=== PATIENT | male | born 1945 | race Caucasian/White ===

== ENCOUNTER 2021-12-28 16:16 | Emergency (ER) | payer OTHER ==
[~2021-12-28] VITALS: Ht 170.2 cm; Wt 83.9 kg
[2021-12-28] MEDS ORDERED: HYDROcodone-ACET 5/325MG TAB PO ONE (19:00)
[2021-12-28 20:00] VITALS: BP 137/81
== END 2021-12-28 20:47 | disposition home or self-care (01) ==
LOC: ER 16:16
DX: M25.511 Pain in right shoulder (principal); Z48.817 Encounter for surgical aftercare following surgery on the skin and subcutaneous tissue
CPT/HCPCS: 93971

== ENCOUNTER 2023-06-14 07:09 | Inpatient (IN) | payer OTHER ==
[~2023-06-14] VITALS: Ht 172.7 cm; Wt 92.8 kg
[2023-06-14 07:33] LABS: Basophils # (auto) 0 10 ^3/uL (0-0.2); Eosinophils # (auto) 0 10 ^3/uL (0-0.8); Eosinophils % (auto) 0.4 % (0.0-7.0); Monocytes # (auto) 0.8 10 ^3/uL (0-1.3); Neutrophils # (auto) 4.6 10 ^3/uL (1.6-8.6); Nucleated Red Blood Cells % 0.1 %; White Blood Cell 7.7 10^3/uL (4.4-10.8)
[2023-06-14 07:34] LABS: Basophils % (auto) 0.4 % (0.0-2.0); Hematocrit 42.7 % (41.0-53.0); Hemoglobin 14.9 g/dL (13.5-17.5); Lymphocytes # (auto) 2.3 10 ^3/uL (0.4-5.4); Lymphocytes % (auto) 29.4 % (10.0-50.0); Mean Corpuscular Hemoglobin 34.7 pg (28.0-32.0); Mean Corpuscular Volume 99.2 fL (80.0-100.0); Monocytes % (auto) 10.4 % (0.0-12.0); Neutrophils % (auto) 59.4 % (37.0-80.0); Red Blood Cells 4.31 10^6/uL (4.5-5.90); Red Cell Distribution Width 13.2 % (11.8-14.3)
[2023-06-14 08:00] LABS: Alanine Aminotransferase 30 U/L (7-40); Albumin 3.9 g/dL (3.2-4.8); Alkaline Phosphatase 77 U/L (46-116); Anion Gap 4.1 (5-15); Aspartate Aminotransferase 20 U/L (13-40); BUN/Creatinine Ratio 18.8 (10.0-20.0); Blood Urea Nitrogen 18 mg/dL (9-23); Calcium 9.5 mg/dL (8.5-10.1); Carbon Dioxide 29.9 mmol/L (20-30); Chloride 105 mmol/L (98-107); Glucose 99 mg/dL (74-106); Potassium 4.4 mmol/L (3.5-5.1); Sodium 139 mmol/L (136-145); Total Protein 6.4 g/dL (5.7-8.2)
[2023-06-14] MEDS ORDERED: HYDROcodone-ACET 5/325MG TAB PO ONE (09:00)
[2023-06-14 09:53] LABS: Urine Bacteria NONE SEEN /hpf (None Seen); Urine Blood Negative /uL (Negative); Urine Clarity Clear (Clear); Urine Color Yellow (Yellow); Urine Mucus FEW (None Seen); Urine Protein, UAD Negative (Negative); Urine Specific Gravity 1.019 (1.001-1.035); Urine Urobilinogen Normal (Negative); Urine WBC 1 /hpf (0 - 3)
[2023-06-14] MEDS ORDERED: SODIUM CHLORIDE 0.9% 1,000 ML IV ONE (10:00)
[2023-06-14] MEDS ORDERED: metroNIDAZOLE 500MG/100ML 100 ML IV ONE (10:00)
[2023-06-14] MEDS ORDERED: MORPHINE SULFATE INJ 2 MG/ml SYRG IV ONE ×2 (10:00→10:15)
[2023-06-14] MEDS ORDERED: levoFLOXacin 500MG 100 ML IV ONE (10:00)
[2023-06-14] MEDS ORDERED: ONDANSETRON HCL 4 MG/2 ML VIAL IV ONE ×3 (10:00→12:15)
[2023-06-14] MEDS ORDERED: MORPHINE SULFATE 4 MG/ML SYR/VIAL IV ONE (10:45)
[2023-06-14] MEDS ORDERED: HYDROmorphone HCL 2 MG/ML VL/or syr IV ONE (12:15)
[2023-06-14] MEDS ORDERED: ACETAMINOPHEN 325 MG TAB PO PRN (13:00)
[2023-06-14] MEDS ORDERED: HYDROcodone-ACET 5/325MG TAB PO PRN (13:00)
[2023-06-14] MEDS ORDERED: HYDR-4072 PO (13:10)
[2023-06-14] MEDS ORDERED: DORZ2SOL17 (13:10)
[2023-06-14] MEDS ORDERED: [UNRECOGNIZED DRUG - CODE] EACHEYE (13:10)
[2023-06-14] MEDS ORDERED: GAB100C PO (13:10)
[2023-06-14] MEDS ORDERED: TIMO0.5S32 (13:10)
[2023-06-14] MEDS ORDERED: ROPI5TAB17 PO (13:10)
[2023-06-14] MEDS ORDERED: ROPI0.5T4 PO (13:10)
[2023-06-14] MEDS ORDERED: DOXY-111 PO (13:10)
[2023-06-14] MEDS ORDERED: TRAZ-227 PO (13:10)
[2023-06-14] MEDS ORDERED: KETOROLAC TROMETH 30 MG/ML 1ML VIAL IV ONE (13:15)
[2023-06-14] MEDS ORDERED: DICYCLOMINE HCL 10 MG CAP PO SCH (13:45)
[2023-06-14] MEDS ORDERED: DICYCLOMINE HCL 10 MG CAP PO ONE (13:45)
[2023-06-14] MEDS: SODIUM CHLORIDE 0.9% 1,000 ML IV SCH (14:21)
[2023-06-14] MEDS: metroNIDAZOLE 500MG/100ML 100 ML IV SCH ×2 (14:22→22:38)
[2023-06-14] MEDS ORDERED: TEMAZEPAM 15 MG CAP PO ONE (21:30)
[2023-06-14 23:00] VITALS: PULSE 88; RESP 14; O2SAT 97
[2023-06-14] MEDS ORDERED: ALPRAZolam 0.5 MG TAB PO ONE (23:15)
[2023-06-15 05:16] LABS: Basophils # (auto) 0 10 ^3/uL (0-0.2); Eosinophils # (auto) 0 10 ^3/uL (0-0.8); Eosinophils % (auto) 0.5 % (0.0-7.0); Monocytes # (auto) 0.6 10 ^3/uL (0-1.3); Monocytes % (auto) 8.6 % (0.0-12.0); Nucleated Red Blood Cells % 0.1 %
[2023-06-15 05:18] LABS: Basophils % (auto) 0.3 % (0.0-2.0); Hematocrit 39.5 % (41.0-53.0); Hemoglobin 13.9 g/dL (13.5-17.5); Lymphocytes # (auto) 1.5 10 ^3/uL (0.4-5.4); Lymphocytes % (auto) 20.9 % (10.0-50.0); Mean Corpuscular Hemoglobin 36.4 pg (28.0-32.0); Mean Corpuscular Hgb Conc. 35.2 g/dL (32.0-36.0); Mean Corpuscular Volume 103.5 fL (80.0-100.0); Neutrophils % (auto) 69.7 % (37.0-80.0); Red Blood Cells 3.82 10^6/uL (4.5-5.90); Red Cell Distribution Width 13.4 % (11.8-14.3); White Blood Cell 7.1 10^3/uL (4.4-10.8)
[2023-06-15 05:28] LABS: Alanine Aminotransferase 22 U/L (7-40); Albumin 3.4 g/dL (3.2-4.8); Alkaline Phosphatase 63 U/L (46-116); Anion Gap 4.1 (5-15); Aspartate Aminotransferase 17 U/L (13-40); BUN/Creatinine Ratio 16.5 (10.0-20.0); Bilirubin, Total 1.4 mg/dL (0.2-1.0); Blood Urea Nitrogen 16 mg/dL (9-23); Calcium 8.7 mg/dL (8.7-10.4); Carbon Dioxide 25.9 mmol/L (20-30); Chloride 105 mmol/L (98-107); Glucose 126 mg/dL (74-106); Potassium 4.3 mmol/L (3.5-5.1); Sodium 135 mmol/L (136-145); Total Protein 5.8 g/dL (5.7-8.2)
[2023-06-15] MEDS: SODIUM CHLORIDE 0.9% 1,000 ML IV SCH (06:00)
[2023-06-15] MEDS ORDERED: CYCLOBENZAPRINE HCL 10 MG TAB PO PRN (06:15)
[2023-06-15 09:00] VITALS: PULSE 61; RESP 16; O2SAT 98
[2023-06-15] MEDS ORDERED: levoFLOXacin 500MG 100 ML IV SCH (10:00)
[2023-06-15] MEDS ORDERED: ENOXAPARIN SOD 40 MG/0.4 ML SYRINGE SC SCH (10:00)
[2023-06-15 11:32] VITALS: BP 147/71; PULSE 64; RESP 19; TEMP 97.9; O2SAT 98
[2023-06-15 13:18] VITALS: RESP 18
[2023-06-15 13:38] VITALS: BP 147/71; PULSE 64; RESP 19; TEMP 97.9; O2SAT 98
== END 2023-06-15 14:38 | disposition home or self-care (01) | DRG 392 ==
LOC: ER 07:09 → OVERFLOW 13:04 → WEST WING 06-15 12:01
PROVIDERS: ADMIT Nurse Practitioner Family; ATTEND Internal Medicine Geriatric Medicine
DX: R10.9 Unspecified abdominal pain (principal); G20 Parkinson's disease; I10 Essential (primary) hypertension; K52.9 Noninfective gastroenteritis and colitis, unspecified; G89.29 Other chronic pain; M54.9 Dorsalgia, unspecified; K59.00 Constipation, unspecified; Z88.0 Allergy status to penicillin
CPT/HCPCS: 36415; 72040; 72070; 72100; 74176; 80053; 81001; 83690; 84484; 85025; 93005; 96365; 96375; 96376; G0378; J1885; J1956; J2405; J3490

== ENCOUNTER 2023-06-17 04:28 | Inpatient (IN) | payer OTHER ==
[~2023-06-17] VITALS: Ht 170.2 cm; Wt 82.5 kg
[~2023-06-17 04:28] MED LIST: DORZ2SOL17; DOXY-111 PO; GAB100C PO; HYDR-4072 PO; ROPI0.5T4 PO; ROPI5TAB17 PO; TIMO0.5S32; TRAZ-227 PO; [UNRECOGNIZED DRUG - CODE] EACHEYE
[2023-06-17 05:07] LABS: Urine WBC None Seen /hpf (0 - 3)
[2023-06-17 05:23] LABS: Urine Bacteria NONE SEEN /hpf (None Seen); Urine Blood Negative /uL (Negative); Urine Clarity Clear (Clear); Urine Protein, UAD Negative (Negative); Urine Specific Gravity 1.006 (1.001-1.035); Urine Urobilinogen Normal (Negative); Urine pH 7.5 (5.0-8.0)
[2023-06-17 05:31] LABS: Urine Color Straw (Yellow)
[2023-06-17] MEDS ORDERED: HYDROmorphone HCL 2 MG/ML VL/or syr IV ONE (07:00)
[2023-06-17] MEDS ORDERED: IOHEXOL 300 MG/ML 100ML BOTTLE IJ ONE (07:03)
[2023-06-17 07:54] LABS: Basophils # (auto) 0 10 ^3/uL (0-0.2); Eosinophils # (auto) 0.1 10 ^3/uL (0-0.8); Eosinophils % (auto) 0.7 % (0.0-7.0); Monocytes # (auto) 0.8 10 ^3/uL (0-1.3)
[2023-06-17 07:56] LABS: Basophils % (auto) 0.4 % (0.0-2.0); Hematocrit 44.4 % (41.0-53.0); Hemoglobin 15.5 g/dL (13.5-17.5); Lymphocytes # (auto) 2.6 10 ^3/uL (0.4-5.4); Lymphocytes % (auto) 31.3 % (10.0-50.0); Mean Corpuscular Hemoglobin 35.6 pg (28.0-32.0); Mean Corpuscular Hgb Conc. 34.9 g/dL (32.0-36.0); Monocytes % (auto) 9.7 % (0.0-12.0); Neutrophils # (auto) 4.8 10 ^3/uL (1.6-8.6); Neutrophils % (auto) 57.9 % (37.0-80.0); Nucleated Red Blood Cells % 0.1 %; Red Blood Cells 4.35 10^6/uL (4.5-5.90); Red Cell Distribution Width 13.4 % (11.8-14.3); White Blood Cell 8.3 10^3/uL (4.4-10.8)
[2023-06-17 08:09] VITALS: PULSE 87; RESP 18; O2SAT 99
[2023-06-17 08:12] LABS: Alanine Aminotransferase 31 U/L (7-40); Albumin 4.3 g/dL (3.2-4.8); Alkaline Phosphatase 70 U/L (46-116); Anion Gap 6.4 (5-15); Aspartate Aminotransferase 32 U/L (13-40); BUN/Creatinine Ratio 15.2 (10.0-20.0); Blood Urea Nitrogen 16 mg/dL (9-23); Calcium 9.6 mg/dL (8.5-10.1); Carbon Dioxide 26.6 mmol/L (20-30); Chloride 106 mmol/L (98-107); Glucose 102 mg/dL (74-106); Lipase 43 U/L (12-53); Potassium 4.3 mmol/L (3.5-5.1); Sodium 139 mmol/L (136-145)
[2023-06-17 08:13] LABS: Bilirubin, Total 1.3 mg/dL (0.2-1.0); Total Protein 7.3 g/dL (5.7-8.2)
[2023-06-17] MEDS ORDERED: LORazepam 2MG/ML-1ML VIAL IV ONE ×2 (09:00→17:30)
[2023-06-17] MEDS ORDERED: ONDANSETRON HCL 4 MG/2 ML VIAL IV PRN (13:00)
[2023-06-17] MEDS ORDERED: MORPHINE SULFATE INJ 2 MG/ml SYRG IV PRN (13:00)
[2023-06-17] MEDS ORDERED: NITROGLYCERIN 0.4 MG SL TAB SL PRN (13:00)
[2023-06-17] MEDS: ALPRAZolam 0.25 MG TAB PO PRN (16:14)
[2023-06-17 19:40] VITALS: PULSE 80; RESP 22; O2SAT 93
[2023-06-17] MEDS ORDERED: BACLOFEN 10 MG TAB PO ONE (20:45)
[2023-06-18] VITALS (10 sets, daily range): BP systolic 108–144; BP diastolic 60–90; PULSE 60–93; RESP 16–22; TEMP 97.2–98.3; O2SAT 96–100
[2023-06-18] MEDS: ALPRAZolam 0.25 MG TAB PO PRN ×2 (00:25→09:08)
[2023-06-18] MEDS ORDERED: BACLOFEN 10 MG TAB PO ONE (00:45)
[2023-06-18] MEDS ORDERED: LORazepam 2MG/ML-1ML VIAL IV ONE (14:30)
[2023-06-18] MEDS: ACETAMINOPHEN 325 MG TAB PO PRN ×2 (14:48→22:32)
[2023-06-18] MEDS: LORazepam 2MG/ML-1ML VIAL IV PRN ×2 (15:53→19:56)
[2023-06-18] MEDS: BACLOFEN 10 MG TAB PO PRN (15:58)
[2023-06-18] MEDS ORDERED: ROPINIROLE HYDROCHLORIDE PO SCH (22:00)
[2023-06-18] MEDS ORDERED: PATIENTS OWN MEDICATION PO SCH (22:00)
[2023-06-18] MEDS: ROPINIROLE HYDROCHLORIDE PO SCH (22:32)
[2023-06-19] VITALS (9 sets, daily range): BP systolic 119–162; BP diastolic 69–100; PULSE 70–97; RESP 16–22; TEMP 97.4–98.1; O2SAT 94–98
[2023-06-19] MEDS: LORazepam 2MG/ML-1ML VIAL IV PRN ×3 (00:11→12:29)
[2023-06-19] MEDS: BACLOFEN 10 MG TAB PO PRN ×3 (00:20→23:43)
[2023-06-19] MEDS: ROPINIROLE HYDROCHLORIDE PO SCH ×2 (06:20→22:08)
[2023-06-19] MEDS ORDERED: hydrALAZINE HCL 20 MG/ML VL IV PRN (10:15)
[2023-06-19] MEDS ORDERED: TIMO0.5S28 OP (10:58)
[2023-06-19 13:57] LABS: INR 1.14 (0.9-1.15); Prothrombin Time 11.9 sec (9.3-11.8)
[2023-06-19] MEDS ORDERED: ONDANSETRON HCL 4 MG/2 ML VIAL ONE (16:50)
[2023-06-19] MEDS ORDERED: DexAMETHasone SOD PHOS 10MG/1ML VIAL INJ ONE (16:50)
[2023-06-19] MEDS ORDERED: GLYCOPYRROLATE 0.2 MG/ML 1ML VIAL ONE (16:50)
[2023-06-19] MEDS ORDERED: KETOROLAC TROMETH 30 MG/ML 1ML VIAL ONE (16:50)
[2023-06-19] MEDS ORDERED: LIDOCAINE 2% (LOCAL ANESTH.) PF 5ml SDV ONE (16:50)
[2023-06-19] MEDS ORDERED: PROPOFOL 10 MG/ML 20 ML IV ONE ×2 (16:50→19:10)
[2023-06-19] MEDS ORDERED: LIDOCAINE 1%-Mpf/Epinephrine 1:200,000 30ml VIAL ONE (17:44)
[2023-06-19] MEDS ORDERED: SODIUM CHLORIDE LOCK 10 ML ONE (18:10)
[2023-06-19] MEDS ORDERED: ceFAZolin 1GM VL ONE (18:10)
[2023-06-19] MEDS ORDERED: VANCOMYCIN HCL 1000 MG VL ONE (19:22)
[2023-06-19] MEDS: CLINDAMYCIN HCL 150 MG CAP PO SCH (22:08)
[2023-06-19] MEDS ORDERED: [UNRECOGNIZED DRUG - OTHER] PO PRN (22:45)
[2023-06-20 05:00] VITALS: BP 131/67; PULSE 79; RESP 20; TEMP 97.7; O2SAT 97
[2023-06-20 05:53] LABS: Basophils # (auto) 0 10 ^3/uL (0-0.2); Eosinophils # (auto) 0 10 ^3/uL (0-0.8); Hemoglobin 16.3 g/dL (13.5-17.5); Lymphocytes # (auto) 0.7 10 ^3/uL (0.4-5.4); Monocytes # (auto) 0.1 10 ^3/uL (0-1.3); Nucleated Red Blood Cells % 0.1 %
[2023-06-20 05:55] LABS: Basophils % (auto) 0.1 % (0.0-2.0); Hematocrit 46.8 % (41.0-53.0); Lymphocytes % (auto) 9.9 % (10.0-50.0); Mean Corpuscular Hemoglobin 35.8 pg (28.0-32.0); Mean Corpuscular Volume 102.5 fL (80.0-100.0); Monocytes % (auto) 1.4 % (0.0-12.0); Neutrophils # (auto) 6.4 10 ^3/uL (1.6-8.6); Neutrophils % (auto) 88.6 % (37.0-80.0); Red Blood Cells 4.56 10^6/uL (4.5-5.90); Red Cell Distribution Width 13.2 % (11.8-14.3); White Blood Cell 7.3 10^3/uL (4.4-10.8)
[2023-06-20 05:56] LABS: Chloride 103 mmol/L (98-107); Potassium 4.5 mmol/L (3.5-5.1); Sodium 135 mmol/L (136-145)
[2023-06-20 05:57] LABS: Anion Gap 7.5 (5-15); Calcium 9.3 mg/dL (8.5-10.1); Carbon Dioxide 24.5 mmol/L (20-30)
[2023-06-20 06:02] LABS: BUN/Creatinine Ratio 14.6 (10.0-20.0); Blood Urea Nitrogen 15 mg/dL (9-23); Glucose 137 mg/dL (74-106); Magnesium 2.1 mg/dL (1.6-2.6)
[2023-06-20] MEDS: CLINDAMYCIN HCL 150 MG CAP PO SCH (06:32)
[2023-06-20] MEDS: ROPINIROLE HYDROCHLORIDE PO SCH (06:32)
[2023-06-20] MEDS ORDERED: TIMOLOL MAL 0.5% OPTH(EYE) SOL 5ML RIGHTEYE SCH (07:00)
[2023-06-20 08:00] VITALS: BP 150/79; PULSE 79; PULSE 82; RESP 17; TEMP 97.8; O2SAT 97
[2023-06-20] MEDS ORDERED: ALPR0.25 PO (10:22)
[2023-06-20] MEDS ORDERED: DOXY1CAP57 PO (10:22)
[2023-06-20 12:40] VITALS: BP 150/79; PULSE 79; RESP 17; TEMP 97.8; O2SAT 97
== END 2023-06-20 14:00 | disposition home or self-care (01) | DRG 93 ==
LOC: ER 04:28 → TELE 12:51 → TELE-WESTW 23:50
PROVIDERS: ADMIT Internal Medicine Geriatric Medicine; ATTEND Internal Medicine Geriatric Medicine
PROC: 0JPT0MZ Removal of Stimulator Generator from Trunk Subcutaneous Tissue and Fascia, Open Approach (ICD-10-PCS; principal; 2023-06-19 18:08)
DX: T85.118A Breakdown (mechanical) of other implanted electronic stimulator of nervous system, initial encounter (principal); G20 Parkinson's disease; G89.4 Chronic pain syndrome; G43.909 Migraine, unspecified, not intractable, without status migrainosus; G25.81 Restless legs syndrome; G25.3 Myoclonus; Y83.8 Other surgical procedures as the cause of abnormal reaction of the patient, or of later complication, without mention of misadventure at the time of the procedure; G62.9 Polyneuropathy, unspecified; Z88.0 Allergy status to penicillin; Z83.3 Family history of diabetes mellitus; Z82.49 Family history of ischemic heart disease and other diseases of the circulatory system; Y92.89 Other specified places as the place of occurrence of the external cause
CPT/HCPCS: 36415; 71045; 72100; 74177; 76000; 80048; 80053; 81001; 83690; 83735; 84484; 85025; 85610; 85730; 86850; 86900; 86901; 93005; G0378; J0690; J1100; J1885; J2001; J2405; J2704

== ENCOUNTER 2024-11-20 12:12 | Emergency (ER) | payer OTHER ==
[~2024-11-20] VITALS: Ht 170.2 cm; Wt 91.8 kg
[~2024-11-20 12:12] MED LIST changes: +ALPR0.25 PO; -DOXY-111 PO; +DOXY1CAP57 PO; -GAB100C PO; -HYDR-4072 PO; +ROPI0.5T26 PO; -ROPI0.5T4 PO; +TIMO0.5S28 OP; -TIMO0.5S32; -TRAZ-227 PO
--- NOTE | 2024-11-20 13:46 | ED.PDOC ---
Musculoskeletal HPI Comments 79 year old male presents to the ED with chief complaint of foot pain. Patient reports that he has been experiencing left sided foot pain with associated swelling, tingling, and numbness for the past 4 hours. Patient relays that he has peripheral neuropathy, but his pain is usually well controlled. Patient states he called his neurologist and was advised to come into the ED for evaluation of possible DVT. Patient denies any weakness, fever, chills, chest pain, or SOB. Chief Complaint: Lower Extremity Time Seen by MD: 13:43 Primary Care Provider: ACE Reviewed Notes: Nurses Notes, Medications, Allergies Allergies: Coded Allergies: Penicillins (Verified Allergy, Unknown, 06/14/23) Home Meds Active Scripts Doxycycline Monohydrate (Doxycycline Monohydrate) 100 Mg Cap, 1 CAP PO BID, #14 CAP Prov:JESSE MCMANUS MD 06/20/23 Alprazolam (Xanax) 0.25 Mg Tb, 1 TAB PO Q8HP PRN, #30 TAB Prov:JESSE MCMANUS MD 06/20/23 Reported Medications Timolol Maleate (Timolol Maleate Ophthalmi) 0.5 % Karol, 0.5 % OP QAM for right eye only, ML 06/19/23 Ropinirole Hydrochloride (Ropinirole Hcl) 0.5 Mg Tab, 1 TAB PO TID 06/14/23 Loteprednol Etabonate (Eysuvis) 0.25 % Palomo, EACHEYE 06/14/23 Dorzolamide Hcl (Dorzolamide Hcl) 2 % Karol 06/14/23 Ropinirole Hydrochloride (Ropinirole Hcl) 5 Mg Tab, TAB PO 06/14/23 Information Source: Patient Mode of Arrival: Ambulatory Location: Left Extremity Location: Foot Timing: Hours Prehospital treatment: None Severity: Moderate Able to Move Extremity: Yes Bear Weight: Limited Pain: Moderate Mechanism: Spontaneous Circumstances: Spontaneous Onset of Symptoms: Spontaneous Symptoms: Swelling, Pain Past Medical History Past Medical History (Other): Neuropathy Surgical History: Appendectomy, Tonsillectomy Family History Family History: Unknown Social History Smoker: Non-Smoker Alcohol: Occasionally Drugs: Denies Drug Use Lives In: Home Constitutional: denies: chills, diaphoresis, fatigue, fever, malaise, sweats, weakness, others EENTM: denies: blurred vision, double vision, ear bleeding, ear discharge, ear drainage, ear pain, ear ringing, eye pain, eye redness, hearing loss, mouth pain, mouth swelling, nasal discharge, nose bleeding, nose congestion, nose pain, photophobia, tearing, throat pain, throat swelling, voice changes, others Respiratory: denies: cough, hemoptysis, orthopnea, SOB at rest, shortness of breath, SOB with excertion, stridor, wheezing, others Cardiovascular: denies: chest pain, dizzy spells, diaphoresis, Dyspnea on exertion, edema, irregular heart beat, left arm pain, lightheadedness, palpitations, PND, syncope, others Gastrointestinal: denies: abdomen distended, abdominal pain, blood streaked bowels, constipated, diarrhea, dysphagia, difficulty swallowing, hematemesis, melena, nausea, poor appetite, poor fluid intake, rectal bleeding, rectal pain, vomiting, others Genitourinary: denies: burning, dysuria, flank pain, frequency, hematuria, incontinence, penile discharge, penile sore, pain, testicle pain, testicle swelling, urgency, others Neurological: denies: dizziness, fainting, headache, left sided numbness, left sided weakness, numbness, paresthesia, pre-existing deficit, right sided numbness, right sided weakness, seizure, speech problems, tingling, tremors, weakness, others Musculoskeletal: reports: others (Left foot swelling and pain); denies: back pain, gout, joint pain, joint swelling, muscle pain, muscle stiffness, neck pain Integumetry: denies: bruises, change in color, change in hair/nails, dryness, laceration, lesions, lumps, rash, wounds, others Allergic/Immunocompromised: denies: Difficulty Healing, Frequent Infections, Hives, Itching, others Hematologic/Lymphatic: denies: anemia, blood clots, easy bleeding, easy bruising, swollen glands, others Endocrine: denies: excessive hunger, excessive sweating, excessive thirst, excessive urination, flushing, intolerance to cold, intolerance to heat, unexplained weight gain, unexplained weight loss, others Psychiatric: denies: anxiety, bipolar disorder, depression, hopeless, panic disorder, schizophrenia, sleepless, suicidal, others All Other Systems: Reviewed and Negative Physical Exam General Appearance: No Apparent Distress, Normal HEENT: Normal ENT Inspection, PERRL/EOMI Neck: Full Range of Motion, Non-Tender, Normal, Normal Inspection Respiratory: Chest Non-Tender, Lungs Clear, No Accessory Muscle Use, No Respiratory Distress, Normal Breath Sounds Cardiovascular: No Edema, No JVD, No Murmur, No Gallop, Normal Peripheral Pulses, Regular Rate/Rhythm Breast Exam: Deferred Gastrointestinal: No Organomegaly, Non Tender, No Pulsatile Mass, Normal Bowel Sounds, Soft Genitalia: Deferred Pelvic: Deferred Rectal: Deferred Extremities: No calf tenderness, Normal capillary refill, Normal range of motion, Other (Left foot more swelling than right and cold to touch) Musculoskeletal : Apperance: Normal Neurologic: Alert, graduate advisor II-XII nml as Tested, No Motor Deficits, Normal Affect, Normal Mood, No Sensory Deficits Cerebellar Function: Normal Reflexes: Normal Skin: Dry, Normal Color, Warm Lymphatic: No Adenopathy Was a procedure done? Was a procedure done?: No Differential Diagnosis EXT Differential Diagnosis: Cellulitis, Deep Vein Thrombosis, Compartment Syndrome, Fracture, Sprain, Dislocation, Laceration, Gout, Septic, Neurovascular injury, Arthritis, Bursitis X-Ray, Labs, Meds, VS Vital Signs Date Time Temp Pulse Resp B/P (MAP) Pulse Ox O2 Delivery O2 Flow Rate FiO2 11/20/24 12:27 98.5 88 18 140/92 (108) 96 Lab Test 11/20/24 13:42 Range/Units White Blood Count 5.6 4.4-10.8 10^3/uL Red Blood Count 4.34 L 4.5-5.90 10^6/uL Hemoglobin 14.9 13.5-17.5 g/dL Hematocrit 43.6 41.0-53.0 % Mean Corpuscular Volume 100.5 H 80.0-100.0 fL Mean Corpuscular Hemoglobin 34.3 H 28.0-32.0 pg Mean Corpuscular Hemoglobin Concent 34.1 32.0-36.0 g/dL Red Cell Distribution Width 14.0 11.8-14.3 % Platelet Count 185 140-450 10^3/uL Mean Platelet Volume 7.1 6.9-10.8 fL Neutrophils (%) (Auto) 57.5 37.0-80.0 % Lymphocytes (%) (Auto) 29.2 10.0-50.0 % Monocytes (%) (Auto) 10.5 0.0-12.0 % Eosinophils (%) (Auto) 2.2 0.0-7.0 % Basophils (%) (Auto) 0.6 0.0-2.0 % Neutrophils # (Auto) 3.2 1.6-8.6 10 ^3/uL Lymphocytes # (Auto) 1.6 0.4-5.4 10 ^3/uL Monocytes # (Auto) 0.6 0-1.3 10 ^3/uL Eosinophils # (Auto) 0.1 0-0.8 10 ^3/uL Basophils # (Auto) 0 0-0.2 10 ^3/uL Nucleated Red Blood Cells 0.1 % D-Dimer, Quantitative 0.59 H 0.0-0.49 mg/L FEU Sodium Level 137 136-145 mmol/L Potassium Level 4.3 3.5-5.1 mmol/L Chloride Level 105 98-107 mmol/L Carbon Dioxide Level 25 20-31 mmol/L Anion Gap 7 5-15 Blood Urea Nitrogen 18 9-23 mg/dL Creatinine 0.92 0.700-1.30 mg/dL Glomerular Filtration Rate Calc 84 >90 mL/min BUN/Creatinine Ratio 19.6 10.0-20.0 Serum Glucose 101 74-106 mg/dL Calcium Level 9.8 8.7-10.4 mg/dL Total Bilirubin 0.8 0.2-1.0 mg/dL Aspartate Amino Transferase (AST) 40 13-40 U/L Alanine Aminotransferase (ALT) 29 7-40 U/L Alkaline Phosphatase 80 46-116 U/L B-Type Natriuretic Peptide 188.87 0-100 pg/mL Total Protein 7.1 5.7-8.2 g/dL Albumin 4.4 3.2-4.8 g/dL X-Ray, Labs, Meds, VS Comment This 79-year-old male presents to the Emergency secondary to left pain, foot numbness and tingling. At approximately 2:00 p.m. when I reassessed the patient, the patient endorses feeling better as the pain has largely resolved. As such, discharge the patient home. Both him and his endorses they will return to the ER for any new/worse has worsening symptoms. As such, discharge them home. Time of 1ST Reevaluation: 14:43 Reevaluation 1ST: Unchanged Patient Education/Counseling: Diagnosis, Treatment Family Education/Counseling: No Family Present Departure 1 Departure Time of Disposition: 16:15 Impression: Primary Impression: Left foot pain Additional Impression: Neuropathy Disposition: 01 HOME / SELF CARE / HOMELESS Condition: Good Discharged With: Self, Spouse Critical Care Note Critical Care Time?: No Stability Stability form required: No Heart Score Heart Score: Heart Score Response (Comments) Value History N/A 0 EKG N/A 0 Age N/A 0 Risk Factors N/A 0 Troponin N/A 0 Total 0 I personally scribed for ARELI ESPINO MD ([email or web address]) on 11/20/24 at 13:46. Electronically submitted by Aki Waldron ([email or web address]). ARELI ESPINO MD Nov 20, 2024 13:46
[2024-11-20 14:04] LABS: Basophils # (auto) 0 10 ^3/uL (0-0.2); Basophils % (auto) 0.6 % (0.0-2.0); Eosinophils # (auto) 0.1 10 ^3/uL (0-0.8); Eosinophils % (auto) 2.2 % (0.0-7.0); Hematocrit 43.6 % (41.0-53.0); Hemoglobin 14.9 g/dL (13.5-17.5); Lymphocytes # (auto) 1.6 10 ^3/uL (0.4-5.4); Lymphocytes % (auto) 29.2 % (10.0-50.0); Mean Corpuscular Hemoglobin 34.3 pg (28.0-32.0); Mean Corpuscular Hgb Conc. 34.1 g/dL (32.0-36.0); Mean Corpuscular Volume 100.5 fL (80.0-100.0); Monocytes # (auto) 0.6 10 ^3/uL (0-1.3); Monocytes % (auto) 10.5 % (0.0-12.0); Neutrophils # (auto) 3.2 10 ^3/uL (1.6-8.6); Neutrophils % (auto) 57.5 % (37.0-80.0); Nucleated Red Blood Cells % 0.1 %; Platelet Count (auto) 185 10^3/uL (140-450); Red Blood Cells 4.34 10^6/uL (4.5-5.90); White Blood Cell 5.6 10^3/uL (4.4-10.8)
--- NOTE | 2024-11-20 14:11 | DVH ---
EXAM: XY L FOOT 3 VIEW XRAY CLINICAL HISTORY: pain COMPARISON: None TECHNIQUE: XY L FOOT 3 VIEW XRAY Findings/Impression: 3 views of the left foot. There is no evidence of an acute fracture, dislocation, blastic, or lytic lesions. No radiopaque foreign bodies. No superficial soft tissue abnormalities.
[2024-11-20 14:35] LABS: Alanine Aminotransferase 29 U/L (7-40); Albumin 4.4 g/dL (3.2-4.8); Alkaline Phosphatase 80 U/L (46-116); Anion Gap 7 (5-15); BUN/Creatinine Ratio 19.6 (10.0-20.0); Bilirubin, Total 0.8 mg/dL (0.2-1.0); Blood Urea Nitrogen 18 mg/dL (9-23); Calcium 9.8 mg/dL (8.7-10.4); Carbon Dioxide 25 mmol/L (20-31); Chloride 105 mmol/L (98-107); Glucose 101 mg/dL (74-106); Potassium 4.3 mmol/L (3.5-5.1); Sodium 137 mmol/L (136-145); Total Protein 7.1 g/dL (5.7-8.2)
[2024-11-20 14:38] LABS: Aspartate Aminotransferase 40 U/L (13-40)
--- NOTE | 2024-11-20 14:46 | DVH ---
US LT LOWER DVT US 11/20/2024 02:16 PM Clinical History: edema, pain cold LLE Comparison: RT UPPER DVT on DOS: 12/28/21 Technique: Duplex Doppler evaluation of the deep venous system of the left lower extremity from the common femor al vein to the popliteal vein including color Doppler and spectral/pulsed waveform analysis was perfo rmed. Findings: The common femoral vein demonstrates appropriate compressibility and waveform variability. There is compressibility/patency of the great saphenous vein at the proximal thigh. The femoral vein demonstrates appropriate compressibility and waveform variability. The deep femoral vein demonstrates appropriate compressibility and waveform variability. The popliteal vein demonstrates appropriate compressibility and waveform variability. There is color flow in the tibioperoneal trunk and posterior tibial vein. Impression: 1. No deep venous thrombosis left lower extremity. If clinical concern/symptoms persist or worsen, s hort-interval follow-up study is suggested.
--- NOTE | 2024-11-20 14:51 | DVH ---
LEFT Lower Extremity Arterial Duplex Date: 11/20/2024 02:21 PM Clinical History: edema, pain cold LLE Comparison: None Technique: Duplex Doppler evaluation including color Doppler and spectral/pulsed waveform analysis of the left l ower extremity arteries was performed. Finding: LEFT: Peak systolic velocities are as follows: SENIOR FIELD SERVICE ENGINEER 129 cm/s Deep femoral 75 cm/s SFA proximal 74 cm/s SFA mid-portion 72 cm/s SFA distal 71 cm/s Popliteal 54 cm/s Posterior tibial 58 cm/s Anterior tibial 63 cm/s Dorsalis pedis 78 cm/s The waveforms are triphasic with diastolic flow. REFERENCE VALUES, [facility] ([facility]) vascular Imaging Lab Criteria: Peak systolic velocity ranges (in cm/sec) are as follows: <150 cm/s - <20 % stenosis 150-200 cm/s - 20-49% stenosis 200-300 cm/s - 50-75% stenosis >300 cm/s -> 75% stenosis IMPRESSION: There is no evidence for peripheral vascular insufficiency in the left lower extremity. No significant focal stenosis is identified.
[2024-11-20 16:39] VITALS: BP 130/88; PULSE 64; RESP 18; TEMP 97.6; O2SAT 98
== END 2024-11-20 16:41 | disposition home or self-care (01) ==
LOC: ER 12:12
DX: R60.0 Localized edema (principal); M79.672 Pain in left foot; G62.9 Polyneuropathy, unspecified; Z90.49 Acquired absence of other specified parts of digestive tract; Z90.89 Acquired absence of other organs; Z88.0 Allergy status to penicillin; Z79.899 Other long term (current) drug therapy
CPT/HCPCS: 36415; 73630; 80053; 83880; 85025; 85379; 93926; 93971

== ENCOUNTER 2025-04-24 12:37 | Emergency (ER) | payer OTHER ==
[~2025-04-24] VITALS: Ht 170.2 cm; Wt 86.0 kg
--- NOTE | 2025-04-24 13:37 | ED.PDOC ---
Musculoskeletal HPI Comments A 79 YEAR OLD MAN PRESENTS TO THE ER WITH A CHIEF COMPLAINT OF RIGHT ANKLE PAIN OF X5 DAYS AGO. PATIENT REPORTS THAT PAIN RADIATED TO RIGHT LOWER LEG. PATIENT HAS NO FURTHER COMPLAINTS AT THIS TIME AND OTHERWISE DENIES FURTHER ASSOCIATED SYMPTOMS OF N/V/D, CHEST PAIN, HEADACHE, DIZZINESS, OR FEVER. NO OTHER SYMPTOMS OR MODIFYING FACTORS AT THIS TIME. PT STATES HE HAS HX OF DM NEUROPATHY AND WAS SEEN [facility] YESTERDAY FOR RIGHT LOWER EXTREMITY PAIN. PT DENIES FALL INJURY AND OTHER COMPLAINTS. Chief Complaint: Lower Extremity Time Seen by MD: 13:30 Primary Care Provider: ACE Reviewed Notes: Nurses Notes, Medications, Allergies Allergies: Coded Allergies: Penicillins (Verified Allergy, Unknown, 06/14/23) Home Meds Active Scripts Tramadol HCl (Tramadol HCl) 50 Mg Tab, 50 MG PO BID, #20 TAB Prov:RUDY TOBIN 04/24/25 Doxycycline Monohydrate (Doxycycline Monohydrate) 100 Mg Cap, 1 CAP PO BID, #14 CAP Prov:JESSE MCMANUS MD 06/20/23 Alprazolam (Xanax) 0.25 Mg Tb, 1 TAB PO Q8HP PRN, #30 TAB Prov:JESSE MCMANUS MD 06/20/23 Reported Medications Timolol Maleate (Timolol Maleate Ophthalmi) 0.5 % Karol, 0.5 % OP QAM for right eye only, ML 06/19/23 Ropinirole Hydrochloride (Ropinirole Hcl) 0.5 Mg Tab, 1 TAB PO TID 06/14/23 Loteprednol Etabonate (Eysuvis) 0.25 % Palomo, EACHEYE 06/14/23 Dorzolamide Hcl (Dorzolamide Hcl) 2 % Karol 06/14/23 Ropinirole Hydrochloride (Ropinirole Hcl) 5 Mg Tab, TAB PO 06/14/23 Information Source: Patient, Spouse Mode of Arrival: Wheelchair Location: Right Extremity Location: Ankle, Leg Timing: Days Prehospital treatment: Treatment Severity: Mild, Moderate Able to Move Extremity: Yes Bear Weight: Fully Pain: Mild, Moderate Onset of Symptoms: Spontaneous Symptoms: Pain DVT Risk Factors: NONE Associated signs and symptoms: Ankle pain (RIGHT ), Leg pain (RIGHT LOWER ) Past Medical History PAST MEDICAL HISTORY: Denies Past Medical History (Other): NEUROPATHY OF RIGHT LOWER LEG Surgical History: Appendectomy, Tonsillectomy Family History Family History: Unknown Social History Smoker: Non-Smoker Alcohol: Occasionally Drugs: Denies Drug Use Lives In: Home Constitutional: denies: chills, diaphoresis, fatigue, fever, malaise, sweats, weakness, others EENTM: denies: blurred vision, double vision, ear bleeding, ear discharge, ear drainage, ear pain, ear ringing, eye pain, eye redness, hearing loss, mouth pain, mouth swelling, nasal discharge, nose bleeding, nose congestion, nose pain, photophobia, tearing, throat pain, throat swelling, voice changes, others Respiratory: denies: cough, hemoptysis, orthopnea, SOB at rest, shortness of breath, SOB with excertion, stridor, wheezing, others Cardiovascular: denies: chest pain, dizzy spells, diaphoresis, Dyspnea on exertion, edema, irregular heart beat, left arm pain, lightheadedness, palpitations, PND, syncope, others Gastrointestinal: denies: abdomen distended, abdominal pain, blood streaked bowels, constipated, diarrhea, dysphagia, difficulty swallowing, hematemesis, melena, nausea, poor appetite, poor fluid intake, rectal bleeding, rectal pain, vomiting, others Genitourinary: denies: burning, dysuria, flank pain, frequency, hematuria, incontinence, penile discharge, penile sore, pain, testicle pain, testicle swel ling, urgency, others Neurological: denies: dizziness, fainting, headache, left sided numbness, left sided weakness, numbness, paresthesia, pre-existing deficit, right sided numbness, right sided weakness, seizure, speech problems, tingling, tremors, weakness, others Musculoskeletal: reports: muscle pain, others (RIGHT ANKLE AND RIGHT LEG PAIN ); denies: back pain, gout, joint pain, joint swelling, muscle stiffness, neck p ain Integumetry: denies: bruises, change in color, change in hair/nails, dryness, laceration, lesions, lumps, rash, wounds, others Allergic/Immunocompromised: denies: Difficulty Healing, Frequent Infections, Hives, Itching, others Hematologic/Lymphatic: denies: anemia, blood clots, easy bleeding, easy bruising, swollen glands, others Endocrine: denies: excessive hunger, excessive sweating, excessive thirst, excessive urination, flushing, intolerance to cold, intolerance to heat, unexplained weight gain, unexplained weight loss, others Psychiatric: denies: anxiety, bipolar disorder, depression, hopeless, panic disorder, schizophrenia, sleepless, suicidal, others All Other Systems: Reviewed and Negative Physical Exam General Appearance: No Apparent Distress, Normal HEENT: Normal ENT Inspection, PERRL/EOMI, Pharynx Normal, TMs Normal Neck: Full Range of Motion, Non-Tender, Normal, Normal Inspection Respiratory: Chest Non-Tender, Lungs Clear, No Accessory Muscle Use, No Respiratory Distress, Normal Breath Sounds Cardiovascular: No Edema, No JVD, No Murmur, No Gallop, Normal Peripheral Pulses, Regular Rate/Rhythm Breast Exam: Deferred Gastrointestinal: No Organomegaly, Non Tender, No Pulsatile Mass, Normal Bowel Sounds, Soft Genitalia: Deferred Pelvic: Deferred Rectal: Deferred Extremities: No calf tenderness, Normal capillary refill, Normal range of motion, No pedal edema, Tender (AND MILD SWELLING ON RIGHT LATERAL ANKLE TO RIGHT LOWER LEG, NO OPEN WOUND AND DVT SIGNS. ) Musculoskeletal : Apperance: Normal Neurologic: Alert, production associate II-XII nml as Tested, No Motor Deficits, Normal Affect, Normal Mood, No Sensory Deficits Cerebellar Function: Normal Reflexes: Normal Skin: Dry, Warm, Other (MILD REDNESS ON BILATERAL LOWER LEG, +VENOUS STASIS DERMATITIS. ) Peripheral Pulses: 2+ carotid (R), 2+ carotid (L), 2+ dorsalis pedis (R), 2+ dorsalis pedis (L) Lymphatic: No Adenopathy Was a procedure done? Was a procedure done?: No Differential Diagnosis EXT Differential Diagnosis: Cellulitis, Deep Vein Thrombosis, Fracture, Strain, Arthritis Other Differential Diagnosis DVT X-Ray, Labs, Meds, VS Vital Signs Date Time Temp Pulse Resp B/P (MAP) Pulse Ox O2 Delivery O2 Flow Rate FiO2 04/24/25 14:37 97.9 65 16 123/79 (94) 96 97.9 04/24/25 14:37 65 16 96 Room Air 04/24/25 12:40 98.0 63 18 126/78 (94) 97 98.0 Lab Test 04/24/25 13:36 Range/Units White Blood Count 5.5 4.4-10.8 10^3/uL Red Blood Count 4.37 L 4.5-5.90 10^6/uL Hemoglobin 15.2 13.5-17.5 g/dL Hematocrit 43.9 41.0-53.0 % Mean Corpuscular Volume 100.6 H 80.0-100.0 fL Mean Corpuscular Hemoglobin 34.8 H 28.0-32.0 pg Mean Corpuscular Hemoglobin Concent 34.6 32.0-36.0 g/dL Red Cell Distribution Width 12.8 11.8-14.3 % Platelet Count 177 140-450 10^3/uL Mean Platelet Volume 7.0 6.9-10.8 fL Neutrophils (%) (Auto) 55.4 37.0-80.0 % Lymphocytes (%) (Auto) 29.6 10.0-50.0 % Monocytes (%) (Auto) 11.6 0.0-12.0 % Eosinophils (%) (Auto) 2.8 0.0-7.0 % Basophils (%) (Auto) 0.6 0.0-2.0 % Neutrophils # (Auto) 3.0 1.6-8.6 10 ^3/uL Lymphocytes # (Auto) 1.6 0.4-5.4 10 ^3/uL Monocytes # (Auto) 0.6 0-1.3 10 ^3/uL Eosinophils # (Auto) 0.2 0-0.8 10 ^3/uL Basophils # (Auto) 0 0-0.2 10 ^3/uL Nucleated Red Blood Cells 0.0 % Sodium Level 137 136-145 mmol/L Potassium Level 4.9 3.5-5.1 mmol/L Chloride Level 103 98-107 mmol/L Carbon Dioxide Level 29 20-31 mmol/L Anion Gap 5 5-15 Blood Urea Nitrogen 22 9-23 mg/dL Creatinine 1.12 0.700-1.30 mg/dL Glomerular Filtration Rate Calc 66 >90 mL/min BUN/Creatinine Ratio 19.6 10.0-20.0 Serum Glucose 100 74-106 mg/dL Uric Acid 4.9 3.7-9.2 mg/dL Calcium Level 9.5 8.7-10.4 mg/dL Right lower extremity venous duplex Clinical History: RIGHT ANKLE PAIN TO RIGHT LOWER LEG Comparison: US LT LOWER DVT on DOS: 11/20/24, RT UPPER DVT on DOS: 12/28/21 Technique: Duplex Doppler evaluation of the deep venous system of the right lower extremity from the common femoral vein to the popliteal vein including color Doppler and spectral/pulsed waveform analysis was performed. Findings: The common femoral vein demonstrates appropriate compressibility and waveform variability. There is compressibility/patency of the great saphenous vein at the proximal thigh. The femoral vein demonstrates appropriate compressibility and waveform variability. The deep femoral vein demonstrates appropriate compressibility and waveform variability. The popliteal vein demonstrates appropriate compressibility and waveform variability. There is normal compressibility at the tibioperoneal trunk. Impression: No right femoropopliteal venous thrombosis. : XY R ANKLE 2 VIEW XRAY HISTORY: PAIN AND MILD SWELLING, NO INJURY COMPARISON: None TECHNIQUE: AP and lateral views of the right ankle were performed. FINDINGS: No acute fracture or dislocation are identified about the right ankle. The mortise is intact. Plantar calcaneal bone spur is incidentally noted. There are atherosclerotic vascular calcifications. IMPRESSION: 1. No acute fracture of the right ankle. 2. Atherosclerotic vascular disease. X-Ray, Labs, Meds, VS Comment EXTERNAL MEDICAL RECORDS: NONE INDEPENDENT HISTORIANS: NONE SOCIAL DETERMINANTS OF HEALTH: NONE LABS ORDERED: CBC, BMP, URIC ACID REVIEWED AND INTERPRETED RESULTS: NONE IMAGING ORDERED: DVT US AND R ANKLE XRAY TREATMENTS ORDERED: NONE PATIENT'S CASE AND RESULTS HAVE BEEN DISCUSSED WITH THE ED ATTENDING PHYSICIAN, DR. MONCADA, AND THEY AGREE WITH MY PLAN OF CARE. I HAVE DISCUSSED IMAGING AND LAB RESULTS WITH THE PATIENT AND HAVE INSTRUCTED THE PATIENT TO FOLLOW UP WITH THEIR PCP IN 1-2 DAYS. THE PATIENT FULLY UNDERS TANDS THEIR RESULTS AND ARE AWARE THEY NEED TO FOLLOW UP WITH THEIR PCP FOR FURTHER EVALUATION IF THEIR SYMPTOMS PERSIST. Images Reviewed?: Images reviewed and evaluated by me Time of 1ST Reevaluation: 14:55 Reevaluation 1ST: Improved Patient Education/Counseling: Diagnosis, Treatment, Need For Follow Up Family Education/Counseling: Diagnosis, Treatment, Need For Follow Up Medical Screening: No EMC Exist At This Time Departure 1 Departure Time of Disposition: 14:55 Impression: Primary Impression: Neuropathy of lower extremity Qualified Codes: G57.91 - Unspecified mononeuropathy of right lower limb Additional Impression: Venous stasis dermatitis Disposition: HOME / SELF CARE / HOMELESS Condition: Stable Additional Instructions: FOLLOW-UP WITH PCP IN 1 TO 2 DAYS. TAKE MEDICATIONS PRESCRIBED. RETURN TO ED FOR ANY NEW OR WORSENING SYMPTOMS. e-Prescriptions Tramadol HCl (Tramadol HCl) 50 Mg Tab 50 MG PO BID, #20 TAB Prov: RUDY TOBIN 04/24/25 Discharged With: Self, Spouse Critical Care Note Critical Care Time?: No Stability Stability form required: No Heart Score Heart Score: Heart Score Response (Comments) Value History N/A 0 EKG N/A 0 Age N/A 0 Risk Factors N/A 0 Troponin N/A 0 Total 0 I personally scribed for RUDY TOBIN ([email or web address]) on 04/24/25 at 13:37. Electronically submitted by Salena Kunz ([employer]). I personally scribed for RUDY TOBIN ([email or web address]) on 04/24/25 at 14:30. Electronically submitted by Salena Kunz ([employer]). I personally scribed for RUDY TOBIN ([email or web address]) on 04/24/25 at 14:31. Electronically submitted by Salena Kunz ([employer]). I personally scribed for RUDY TOBIN ([email or web address]) on 04/24/25 at 14:37. Electronically submitted by Salena Kunz ([employer]). I personally scribed for RUDY TOBIN ([email or web address]) on 04/24/25 at 14:48. Electronically submitted by Salena Kunz ([employer]). RUDY TOBIN Apr 24, 2025 13:37
[2025-04-24 13:58] LABS: Hematocrit 43.9 % (41.0-53.0); Hemoglobin 15.2 g/dL (13.5-17.5); Mean Corpuscular Hemoglobin 34.8 pg (28.0-32.0); Mean Corpuscular Volume 100.6 fL (80.0-100.0); Nucleated Red Blood Cells % 0.0 %
--- NOTE | 2025-04-24 14:04 | DVH ---
EXAM: XY R ANKLE 2 VIEW XRAY HISTORY: PAIN AND MILD SWELLING, NO INJURY COMPARISON: None TECHNIQUE: AP and lateral views of the right ankle were performed. FINDINGS: No acute fracture or dislocation are identified about the right ankle. The mortise is intac t. Plantar calcaneal bone spur is incidentally noted. There are atherosclerotic vascular calcificati ons. IMPRESSION: 1. No acute fracture of the right ankle. 2. Atherosclerotic vascular disease.
[2025-04-24 14:06] LABS: Chloride 103 mmol/L (98-107); Potassium 4.9 mmol/L (3.5-5.1); Sodium 137 mmol/L (136-145)
[2025-04-24 14:07] LABS: Anion Gap 5 (5-15); Carbon Dioxide 29 mmol/L (20-31)
[2025-04-24 14:08] LABS: Calcium 9.5 mg/dL (8.7-10.4)
[2025-04-24 14:12] LABS: Glucose 100 mg/dL (74-106); Uric Acid 4.9 mg/dL (3.7-9.2)
[2025-04-24 14:13] LABS: BUN/Creatinine Ratio 19.6 (10.0-20.0); Blood Urea Nitrogen 22 mg/dL (9-23)
--- NOTE | 2025-04-24 14:18 | DVH ---
Right lower extremity venous duplex Clinical History: RIGHT ANKLE PAIN TO RIGHT LOWER LEG Comparison: US LT LOWER DVT on DOS: 11/20/24, RT UPPER DVT on DOS: 12/28/21 Technique: Duplex Doppler evaluation of the deep venous system of the right lower extremity from the common femo ral vein to the popliteal vein including color Doppler and spectral/pulsed waveform analysis was perf ormed. Findings: The common femoral vein demonstrates appropriate compressibility and waveform variability. There is compressibility/patency of the great saphenous vein at the proximal thigh. The femoral vein demonstrates appropriate compressibility and waveform variability. The deep femoral vein demonstrates appropriate compressibility and waveform variability. The popliteal vein demonstrates appropriate compressibility and waveform variability. There is normal compressibility at the tibioperoneal trunk. Impression: No right femoropopliteal venous thrombosis.
[2025-04-24 14:37] VITALS: BP 123/79; PULSE 65; RESP 16; TEMP 97.9; O2SAT 96
[2025-04-24] MEDS ORDERED: TRAM-626 PO (14:47)
== END 2025-04-24 14:52 | disposition home or self-care (01) ==
LOC: ER 12:37
DX: G57.91 Unspecified mononeuropathy of right lower limb (principal); I87.2 Venous insufficiency (chronic) (peripheral); Z90.89 Acquired absence of other organs; Z90.49 Acquired absence of other specified parts of digestive tract; Z88.0 Allergy status to penicillin
CPT/HCPCS: 36415; 73600; 80048; 84550; 85025; 93971